=== PATIENT | female | born 1970 | race Caucasian/White ===

== ENCOUNTER 2022-09-08 22:17 | Observation (INO) | payer OTHER, MEDICAID, SELFPAY ==
[2022-09-08 22:38] VITALS: PULSE 66; O2SAT 99
[2022-09-08 22:44] VITALS: BP 143/91; PULSE 75; RESP 16; TEMP 36.6; O2SAT 98; BMI 19.9
[2022-09-08 22:59] LABS: Add Manual Diff / Slide Review NO; Basophils Absolute Auto 100 /uL (0-100); Basophils Percent Auto 0.9 % (0-2); Eosinophils Absolute Auto 100 /uL (0-450); Hematocrit 40.4 % (36-46); Lymphocytes Absolute Auto 1800 /uL (1100-4500); Lymphocytes Percent Auto 23.7 % (25-40); Mean Corpuscular HGB Conc 34.6 % (30-36); Mean Corpuscular Hemoglobin 32.7 PG (26-34); Mean Corpuscular Volume 94.6 fL (80-100); Monocytes Absolute Auto 500 /uL (0-900); Monocytes Percent Auto 7.2 % (3-14); Neutrophils Absolute Auto 5100 /uL (1500-7000); Neutrophils Percent Auto 67.2 % (50-75); Platelet Count 249 X10^3/uL (150-400); Red Blood Cell Count 4.27 X10^6/uL (4.0-5.2); Red Cell Distribution Width 13.1 % (11.6-14.8); White Blood Cell Count 7.6 X10^3/uL (4.5-11.0)
[2022-09-08 23:00] VITALS: PULSE 64; O2SAT 98
[2022-09-08 23:01] LABS: Alanine Aminotransferase 16 IU/L (<35); Albumin 4.7 g/dL (3.5-5.0); Albumin Globulin Ratio 1.7 (1.0-2.8); Alkaline Phosphatase 45 U/L (38-126); Aspartate Aminotransferase 19 IU/L (14-36); BUN Creatinine Ratio 10.8 (6-22); Bilirubin Total 0.6 mg/dL (0.2-1.3); Blood Urea Nitrogen 9 mg/dL (7-17); Calcium 9.4 mg/dL (8.4-10.2); Carbon Dioxide 26 mmol/L (22-32); Chloride 106 mmol/L (98-107); Estimated Glomerular Filt Rate > 60 mL/min (>60); Globulin 2.8 g/dL (1.7-4.1); Glucose 82 mg/dL (70-100); HEMOLYSIS < 15 (0-50); Lipase 154 U/L (23-300); Potassium 3.5 mmol/L (3.4-5.1); Sodium 141 mmol/L (137-145); Total Protein 7.5 g/dL (6.3-8.2)
--- NOTE | 2022-09-08 23:10 | ED_ITS ---
HPI - Abdominal Pain General Chief Complaint: Abdominal Pain Stated Complaint: abd pain/rt side Time Seen by Provider: 09/08/22 22:40 Source: patient Mode of arrival: Ambulatory History of Present Illness HPI narrative: 52-year-old female smoker with no significant medical history and no prescription medications presents with a chief complaint of gradually worsening epigastric and right upper quadrant pain with some elements of right lower quadrant pain worsening over the course of the day. She states it is worse when she eats or drinks as well as moves. She has had nausea but denies any vomiting. She states she tried to have a hamburger much earlier in the day it sent her pain through the roof. She denies radiation to her back. She is had no fever or chills. She does not drink any alcohol. She denies any change in bowel habits or medications Related Data Allergies Allergy/AdvReac Type Severity Reaction Status Date / Time No Known Drug Allergies Allergy Verified 09/09/22 01:07 Review of Systems Review of Systems Narrative: GENERAL: Denies chills, fatigue, malaise, fever, sweats. HEENT: Denies sinus pain, ear pain, sore throat, difficulty swallowing, diz ziness. RESPIRATORY: Denies dyspnea, cough, wheezing, hemoptysis, sputum. CARDIOVASCULAR: Denies chest pain, palpitations, orthopnea, edema, GASTROINTESTINAL: See HPI : Denies dysuria, frequency, incontinence, hematuria, urinary retention. MUSCULOSKELETAL: denies weakness, joint pain, or bony pain SKIN: Denies rash, skin lesions, or other NEUROLOGIC: Denies weakness, headache, numbness, change in speech, confusion, seizures, incoordination. PSYCHIATRIC: No concerning psychosocial issues. 12 point review of systems is negative except for those stated above Patient History Social History Smoking Status: Current every day smoker Smoking Status: Current every day smoker Substance Use Type: does not use Exam Narrative Exam Narrative: GENERAL: [52] year old patient appears stated age. Well-developed patient, in mild distress. HEAD: Atraumatic. Normocephalic. EYES: Pupils equal round and reactive. Extraocular motions intact. No scleral icterus. No injection or drainage. ENT: Nose without bleeding, purulent drainage. Throat without erythema, tonsillar hypertrophy or exudate. Airway patent. NECK: Trachea midline. Non tender CARDIOVASCULAR: Regular rate and rhythm without murmurs, gallops, or rubs. RESPIRATORY: Clear to auscultation. Breath sounds equal bilaterally. No wheezes, rales, or rhonchi. GASTROINTESTINAL: Abdomen soft, tender in the epigastrium and right upper quadrant, nondistended. EXTREMITIES: No edema or joint tenderness. BACK: Nontender without deformity or crepitance. No flank tenderness. NEURO: AOx3. SKIN: No rash or erythema of visible areas Initial Vital Signs Initial Vital Signs: Vital Signs Temperature 97.8 F 09/08/22 22:44 Pulse Rate 75 09/08/22 22:44 Respiratory Rate 16 09/08/22 22:44 Blood Pressure 143/91 H 09/08/22 22:44 Pulse Oximetry 98 09/08/22 22:44 Oxygen Delivery Method 09/08/22 22:44 Course Orders Ordered: ED Orders 09/08/22 22:40 Complete Blood Count AUTO DIFF Stat Comprehensive Metabolic Panel Stat Lipase Stat Test Urine Stat 09/08/22 22:44 EKG-12 Lead Stat 09/08/22 23:45 US abdomen limited Stat Discontinued Medications Sodium Chloride (Normal Saline 0.9%) 1,000 mls @ 1,000 mls/hr IV BOLUS ONE Stop: 09/09/22 00:44 Last Infusion: 09/09/22 01:41 Dose: 0 mls/hr Documented By: Admin: 09/08/22 23:54 Dose: 1,000 mls/hr Documented By: RODGER Ampicillin Sodium/Sulbactam (Sodium 3 gm/ Sodium Chloride) 100 mls @ 200 mls/hr IV NOW ONE Stop: 09/09/22 01:02 Pantoprazole Sodium (Pantoprazole 40 Mg Vial) 40 mg IV NOW ONE Stop: 09/08/22 23:46 Last Admin: 09/08/22 23:54 Dose: 40 mg Documented By: RODGER Consultations Consultation #1: call to Dr. Woodson upon receipt of US, request patient be admitted to her service, keep NPO start Unasyn and write bridging orders Time: 00:54 Vital Signs Vital signs: Vital Signs - 8 hr 09/08/22 22:44 Temperature 97.8 F Pulse Rate 75 Respiratory Rate 16 Blood Pressure 143/91 H Pulse Oximetry 98 Oxygen Delivery Method Room Air MDM - Abdominal Pain Lab Data Result diagrams: 09/08/22 22:40 09/08/22 22:40 Labs: Lab Results 09/08/22 09/08/22 09/08/22 Range/Units 22:40 22:40 22:40 WBC 7.6 (4.5-11.0) X10^3/uL RBC 4.27 (4.0-5.2) X10^6/uL Hgb 14.0 (12.0-16.0) g/dL Hct 40.4 (36-46) % MCV 94.6 (80-100) fL MCH 32.7 (26-34) PG MCHC 34.6 (30-36) % RDW 13.1 (11.6-14.8) % Plt Count 249 (150-400) X10^3/uL Neut % (Auto) 67.2 (50-75) % Lymph % (Auto) 23.7 L (25-40) % [place] % (Auto) 7.2 (3-14) % Eos % (Auto) 1.0 L (2-4) % Baso % (Auto) 0.9 (0-2) % Neut # (Auto) 5100 (2913-7805) /uL Lymph # (Auto) 1800 (0873-6800) /uL [place] # (Auto) 500 (0-900) /uL Eos # (Auto) 100 (0-450) /uL Baso # (Auto) 100 (0-100) /uL Sodium 141 (137-145) mmol/L Potassium 3.5 (3.4-5.1) mmol/L Chloride 106 (98-107) mmol/L Carbon Dioxide 26 (22-32) mmol/L BUN 9 (7-17) mg/dL Creatinine 0.83 (0.52-1.04) mg/dL Estimated GFR > 60 (>60) mL/min BUN/Creatinine Ratio 10.8 (6-22) Glucose 82 (70-100) mg/dL Calcium 9.4 (8.4-10.2) mg/dL Total Bilirubin 0.6 (0.2-1.3) mg/dL AST 19 (14-36) IU/L ALT 16 (<35) IU/L Alkaline Phosphatase 45 (38-126) U/L Total Protein 7.5 (6.3-8.2) g/dL Albumin 4.7 (3.5-5.0) g/dL Globulin 2.8 (1.7-4.1) g/dL Albumin/Globulin Ratio 1.7 (1.0-2.8) Lipase 154 (23-300) U/L Urine Test Negative (Negative) Point of care testing: Urine Dip Bedside Urine Glucose Negative Bedside Urine Bilirubin - Negative Bedside Urine Ketone - Negative Urine Specific [place] 1.010 Bedside Urine Occult Blood - Negative Bedside Urine pH 7.0 Bedside Urine Protein - Negative Bedside Urine Urobilinogen - Negative Bedside Urine Nitrite - Negative Bedside Urine Leukocytes - Negative Esterase Imaging Data US - abdomen: Radiologist's Impression: [address] [address] Ultrasound Report Signed Patient: Veronica Ferreira MR#: [id number] : 1970 Acct:[id number] Age/Sex: 52 / F Date of Service: 09/08/22 Loc: 90A-1 Accession Number: [id number] ?? Procedure: US abdomen limited Ordering Provider: Pranav Ovalle D.O. PROCEDURE: US ABDOMEN LIMITED ? INDICATIONS:? EPIGASTRIC AND RIGHT UPPER QUADRANT PAIN ? TECHNIQUE:? Real-time focused scanning was performed of the abdomen, with image documentation.? ? COMPARISON:? None. ? FINDINGS:? ? The liver appears within normal size limits.? No discrete hepatic mass identified. ? A large gallstone measuring up to 1.7 cm is demonstrated in the gallbladder.? The gallbladder is incompletely distended limiting evaluation.? Mild gallbladder wall thickening is demonstrated measuring up to 0.3 cm which may be due to incomplete distention.? No pericholecystic fluid.? Patient was reportedly tender on examination. ? No definite intrahepatic biliary ductal dilatation.? There is mild extrahepatic dilatation, with the visualized common bile duct measuring up to 0.8 cm. ? Visualized pancreas appears unremarkable sonographically. ? Prominent peristaltic activity noted within the stomach.? ? IMPRESSION:? ? 1. Cholelithiasis without definite evidence of cholecystitis.? Mild borderline gallbladder wall thickening may reflect artifact secondary to incomplete gallbladder distention. ? 2. Borderline biliary ductal dilatation.? Recommend correlation with laboratory values. ? 3. Peristaltic activity noted in the stomach.? Finding is nonspecific and may reflect a gastroenteritis.? ? Dictated by: Saul Rollins M.D. on 09/09/2022 at 1:22 ? ? Approved by: Saul Rollins M.D. on 09/09/2022 at 1:26 ? [facility] Narrative Medical decision making narrative: [52-year-old female smoker without chronic medical history presents with epigastric and right upper quadrant pain, worse with moving and eating] Multiple etiologies for patient's symptoms considered including, but not limited to: [Gallbladder disease, pancreatitis, bowel obstruction versus other] Labs reviewed and interpreted by myself: No significant abnormality such as elevated white blood cell count, elevated bilirubin or LFTs to suggest an obstructive process Imaging reviewed: Gallstones with thickened gallbladder wall, possible sludge Consultations: Discussed with on-call general surgeon (Dr. Woodson) Patient's history, physical exam and ultrasound consistent with gallbladder disease, imaging suggestive of early coli cystitis. No labs to suggest obstructive process Findings and admission diagnosis discussed with patient/family followed by verbalization of understanding Discharge Plan Departure Patient Disposition: Admitted as Observation Clinical Impression: Acute cholecystitis Admit Date/Time: 09/09/22 01:06 Admit Provider: Darline Woodson
[2022-09-08 23:20] VITALS: BP 129/97; PULSE 74; RESP 19; O2SAT 96
[2022-09-08 23:27] LABS: Pregnancy Test Urine Negative (Negative)
[2022-09-08 23:30] VITALS: BP 128/62; PULSE 70; RESP 19; O2SAT 96
--- NOTE | 2022-09-08 23:45 | DI.US.S_ITS ---
PROCEDURE: US ABDOMEN LIMITED INDICATIONS: EPIGASTRIC AND RIGHT UPPER QUADRANT PAIN TECHNIQUE: Real-time focused scanning was performed of the abdomen, with image documentation. COMPARISON: None. FINDINGS: The liver appears within normal size limits. No discrete hepatic mass identified. A large gallstone measuring up to 1.7 cm is demonstrated in the gallbladder. The gallbladder is incompletely distended limiting evaluation. Mild gallbladder wall thickening is demonstrated measuring up to 0.3 cm which may be due to incomplete distention. No pericholecystic fluid. Patient was reportedly tender on examination. No definite intrahepatic biliary ductal dilatation. There is mild extrahepatic dilatation, with the visualized common bile duct measuring up to 0.8 cm. Visualized pancreas appears unremarkable sonographically. Prominent peristaltic activity noted within the stomach. IMPRESSION: 1. Cholelithiasis without definite evidence of cholecystitis. Mild borderline gallbladder wall thickening may reflect artifact secondary to incomplete gallbladder distention. 2. Borderline biliary ductal dilatation. Recommend correlation with laboratory values. 3. Peristaltic activity noted in the stomach. Finding is nonspecific and may reflect a gastroenteritis. Dictated by: Saul Rollins M.D. on 09/09/2022 at 1:22 Approved by: Saul Rollins M.D. on 09/09/2022 at 1:26
[2022-09-08] MEDS: SODIUM CHLORIDE 0.9% 1,000 ML 1000 ML IV (23:54)
[2022-09-08] MEDS: PANTOPRAZOLE 40 MG VIAL IV (23:54)
[2022-09-09] VITALS (16 sets, daily range): BP systolic 113–181; BP diastolic 52–91; PULSE 45–75; RESP 12–20; TEMP 35.9–36.8; O2SAT 92–99; BMI 19.9
--- NOTE | 2022-09-09 | PATH_ITS ---
[facility] Accession Number: [id number] . 01 Material submitted: . gallbladder - GALLBLADDER . 01 Diagnosis: Gallbladder, Cholecystectomy: Chronic cholecystitis and cholelithiasis. Negative for neoplasia. MRV 09/11/2022 1637 Local . 01 Electronically signed: . Monique Otero MD, Pathologist NPI- [id number] . 01 Gross description: . The specimen is received in formalin labeled with the patient's name, , and gallbladder, and consists of an intact gallbladder measuring 7.5 x 3.3 x 2.4 cm. The serosa is dark green and smooth while the hepatic surface is rough and unremarkable. The cystic duct is received closed with a clamp, is inked blue, and no pericystic lymph node is identified. Opening the specimen reveals the lumen is filled with dark green viscous bile and a single brown roughened calculus measuring 2.5 cm in greatest dimension. The mucosa is dark green and velvety with no pinpoint yellow areas of discoloration, polyps, or lesions identified. The kinsey average 0.2 cm thick. Supervisor Waterproofing sections to include the cystic duct margin and full-thickness sections are submitted in cassette A1. ([id number]) /MRV 09/10/2022 1609 Local . 01 Pathologist provided ICD-10: K81.9 . 01 CPT . 854896 Specimen Comment: A courtesy copy of this report has been sent to [phone], [phone] Specimen Comment: [id number] Performed at: 01 [facility] [address] [place] [address] [address] [facility], [place], [place] [id number] MD Saul Gonzales MD Phone: [phone]
[2022-09-09 01:33] LABS: COVID19 -Nasal RAPID Negative (Negative)
[2022-09-09] MEDS: AMPICILLIN/SULBACTAM 3 GM 3 GM in SODIUM CHLORIDE 0.9% 100 ML IV (01:49)
[2022-09-09] MEDS: SODIUM CHLORIDE 0.9% 1,000 ML 125 ML IV (02:36)
--- NOTE | 2022-09-09 07:45 | PC.NURSE ---
Confirmed with Destiny in PACU that patient has surgery scheduled for approx 1245 today, and new orders put in by Dr. Clifford are for pre-op nurse. Maintain NPO. Continue to follow.
--- NOTE | 2022-09-09 10:32 | CM.DANOTE ---
DCP: Case received, EMR reviewed and met with patient. Introduced self and role. Was able to obtain some history from patient. DCP assessment completed with information currently available. Patient is a 52 year old female who admitted early this morning to the care of the hospitalist team. PCP: None currently, used to go to [facility]. Payer: confirmed: [employer]. Patient came to the hospital via private vehicle secondary to having worsening epigastric and upper right quadrant pain. Patient indicated that it was getting worse when she eats or drinks, and moves. Patient was diagnosed with acute cholecystitis. She is currently NPO, plan is to have surgery today at 1230. Met with patient in her room. She was laying in, alert and oriented. Confirmed that she resides here in [place] alone, but daughter and grandchildren are with her visiting for a while. She is self employed, independent at baseline. Asked her if she had a provider, and she indicated that she used to go to [facility], but now is looking for a provider. Let her know that [facility] can offer local resources for clinics at [facility]. P: DCP to continue to follow. Plan is surgery today, and home when deemed medically stable. Racheal Evans RN/Blood Bank Supervisor Discharge Planning/Care Management CM Discharge Assessment Start: 09/09/22 10:30 Freq: Status: Active Protocol: Document 09/09/22 10:30 (Rec: 09/09/22 10:32 [id number]) Discharge Planning Assessment Assigned [employer] Pasture Grower Racheal Evans RN/Blood Bank Supervisor Advance Directives? No History Provided By Patient,Medical Record Prior Living Arrangements Mobile home Household Members family Type of transporation used prior to Drives own vehicle admit Independent with ADL's Yes Is patient alert and oriented? Yes Caregiver for Another No Discharge Plan Home Transportation Arrangement Children Referrals Initiated None needed Whiteboard Updated in Patient Room with Yes name and ext. # of [employer] Pasture Grower Review Status In Process Next Review Type Continued Stay Review
--- NOTE | 2022-09-09 11:19 | P.HP_ITS ---
History of Present Illness History of Present Illness Date Patient Seen: 09/09/22 Time Patient Seen: 11:19 Chief complaint: abd pain/rt side Narrative: Has had nausea with eating for over a month now. RUQ sharp pain this last 24hrs, nothing makes it better. First episode of this severity. US confirms impacted stone in neck of gallbladder. Patient History Family & Social History Social History: household members family Prior Living Arrangements Mobile home Safety & Behavioral: Feels Safe in Current Yes Environment Been Physically Hurt or No Threatened By a Person Tobacco & Substance use: Tobacco type cigarettes Smoking Status Current every day smoker Smoking packs per day 0.5 alcohol intake frequency a few times a month Substance Use Type marijuana Meds Home Medications and Allergies Home Medications Medication Instructions Recorded Confirmed Type No Known Home Medications 09/09/22 09/09/22 History Allergies Allergy/AdvReac Type Severity Reaction Status Date / Time No Known Drug Allergies Allergy Verified 09/09/22 01:07 Review of Systems Review of Systems ROS: Yes All systems reviewed with the patient and are negative except as otherwise documented Exam Vital Signs (past 8 hours): - 09/09/22 08:00 09/09/22 09:00 Temperature 98.2 F Pulse Rate 49 L Respiratory Rate 18 Blood Pressure 123/52 L Pulse Oximetry 97 Oxygen Delivery Method Room Air Oxygen Flow Rate 0 Oxygen Delivery Method Room Air Oxygen Flow Rate 0 Const General: cooperative and healthy appearing Nutritional Appearance: average body habitus HENMT Head: normal to inspection, normocephalic and atraumatic Ears: hearing grossly normal bilaterally Eyes General: appearance normal, both eyes and all related structures Neck Neck: trachea midline Chest Chest: normal inspection of the chest Resp Effort & Inspection: normal respiratory effort and able to speak in complete sentences Cardio Rate: bradycardic Rhythm: regular rhythm GI Palpation: soft and tender (RUQ tender to palpation) Skin General: no rashes or lesions noted and elasticity normal Neuro General: patient alert, patient awake and patient oriented x3 Cognition: normal cognition Extrem General: normal to inspection Psych Appearance: grossly normal Mental Status: mental status grossly normal Affect: normal affect Judgment: judgment good Objective Labs Result Diagrams: 09/08/22 22:40 09/08/22 22:40 Labs: Laboratory Results - last 24 hr 09/08/22 09/08/22 09/08/22 22:40 22:40 22:40 WBC 7.6 RBC 4.27 Hgb 14.0 Hct 40.4 MCV 94.6 MCH 32.7 MCHC 34.6 RDW 13.1 Plt Count 249 Neut % (Auto) 67.2 Lymph % (Auto) 23.7 L [place] % (Auto) 7.2 Eos % (Auto) 1.0 L Baso % (Auto) 0.9 Neut # (Auto) 5100 Lymph # (Auto) 1800 [place] # (Auto) 500 Eos # (Auto) 100 Baso # (Auto) 100 Sodium 141 Potassium 3.5 Chloride 106 Carbon Dioxide 26 BUN 9 Creatinine 0.83 Estimated GFR > 60 BUN/Creatinine Ratio 10.8 Glucose 82 Calcium 9.4 Total Bilirubin 0.6 AST 19 ALT 16 Alkaline Phosphatase 45 Total Protein 7.5 Albumin 4.7 Globulin 2.8 Albumin/Globulin Ratio 1.7 Lipase 154 Urine Test Negative SARS-CoV-2 (PCR) 09/09/22 01:08 WBC RBC Hgb Hct MCV MCH MCHC RDW Plt Count Neut % (Auto) Lymph % (Auto) [place] % (Auto) Eos % (Auto) Baso % (Auto) Neut # (Auto) Lymph # (Auto) [place] # (Auto) Eos # (Auto) Baso # (Auto) Sodium Potassium Chloride Carbon Dioxide BUN Creatinine Estimated GFR BUN/Creatinine Ratio Glucose Calcium Total Bilirubin AST ALT Alkaline Phosphatase Total Protein Albumin Globulin Albumin/Globulin Ratio Lipase Urine Test SARS-CoV-2 (PCR) Negative Assessment & Plan Assessment & Plan narrative: Acute cholecystitis Laparoscopic cholecystectomy prior to discharge, possible discharge later today. COVID-19 COVID-19 status: Negative Time Spent With Patient Critical Care time: I spent a total of [] minutes of critical care time on this patient's care today; this time is exclusive of procedural time. Quality VTE Deep Vein Thrombosis/Pulmonary Embolism Present on Admission: No
--- NOTE | 2022-09-09 12:22 | PC.NURSE ---
Patient picked up for surgery.
[2022-09-09] MEDS: GABAPENTIN 300 MG CAPSULE PO (12:48)
[2022-09-09] MEDS: LACTATED RINGERS 1,000 ML 100 ML IV ×2 (12:48→16:06)
[2022-09-09] MEDS: CELECOXIB 200 MG CAPSULE PO (12:48)
[2022-09-09] MEDS: SCOPOLAMINE 1 PATCH TOP (12:50)
[2022-09-09] MEDS: CEFAZOLIN 2 GM/100 ML PREMIX 100 ML IV (14:35)
[2022-09-09] MEDS: BUPIVACAINE 0.5% W/ EPI (PF) 30 ML VIAL INJ (14:48)
--- NOTE | 2022-09-09 14:49 | SUR.OPER ---
Supine on padded OR bed, head on pillow, arms secured on padded arm boards at <90 degrees abduction, legs uncrossed, safety belt at thigh, tape over blanket over lower legs.
--- NOTE | 2022-09-09 15:15 | P.OP_ITS ---
Operative Date/Time/Diagnoses Date of procedure: 09/09/22 Time of procedure: 15:15 Pre-op diagnosis: Acute cholecystitis Post-op diagnosis: same Procedure & Clinicians Procedure: Laparoscopic cholecystectomy Same procedure as scheduled: Yes Indications: Acute cholecystitis Surgeon: Monique Clifford Click Yes if Unassisted: Yes Anesthesia Type: General Operative Notes Findings: Acute cholecystitis Closure Type: primary Specimen(s): other (Gallbladder) Estimated Blood Loss (mL): 15 Blood products transfused: none Procedure in detail: Preop diagnosis: Acute cholecystitis Postop diagnosis: Same Operative procedure: Laparoscopic cholecystectomy Findings: Acute cholecystitis Surgeon: Maria Guadalupe Clifford MD Anesthetic: General with ET tube intubation along with local Procedure: Patient placed in a supine position. Prepped and draped in sterile fashion to expose her abdomen. Infraumbilical port site placed using open technique a 12 mm port. Insufflation began all other ports were placed under direct vision including a 5 mm port in the midepigastrium and 2 5 mm ports in the right lateral abdomen. Gallbladder was grasped with cephalad for exposure. Cystic duct was identified. Clipped once distally twice proximally and transe cted. Cystic artery was identified clipped once distally once proximally and transected. Gallbladder is removed from the fossa with electrocautery. Hemostasis was achieved with electrocautery. We had no spillage of bile or stones. Gallbladder is placed into an Endo-Catch bag and pulled through the infraumbilical port site intact. I surveyed the abdomen for hemostasis and then removed all ports to begin closure. Closure consisted of interrupted 0 Vicryl for fascial closure. One 5 mm port site at the most lateral was closed with an external for 0 Monocryl. The 12 mm port site skin closure was interrupted 4-0 Monocryl. And the other remaining 2 5 mm port sites were closed with Steri- Strips alone. Sterile dressings were placed. Patient was awakened, extubated, taken to recovery room in stable condition. Needle, instrument, sponge counts were correct. Blood loss: 15 mL Specimen: Gallbladder Complications: none Post-operative Condition: stable Disposition: PACU
[2022-09-09] MEDS: ONDANSETRON 4 MG/2 ML INJ IV (16:00)
--- NOTE | 2022-09-09 16:51 | PC.NURSE ---
Patient received from PACU back to room 218. Denies pain. 4 lap sites with gauze and tegaderm in place to abdomen, with minimal drainage noted. Monitor for po intake, post op void, and pain management. Order for discharge this evening if tolerating eating. VSS. Call light within reach.
== END 2022-09-09 19:05 | disposition home or self-care (01) ==
LOC: ED 09-09 01:03 → AC 09-09 01:07
PROVIDERS: Surgery; Admitting Provider Surgery; Emergency Provider Emergency Medicine; Referring Provider Emergency Medicine; Visit Provider Surgery
PROC: 0FT44ZZ Resection of Gallbladder, Percutaneous Endoscopic Approach (ICD-10-PCS; CPT 47562; principal; 2022-09-09 12:30)
DX: K80.00 Calculus of gallbladder with acute cholecystitis without obstruction (principal); Z20.822 Contact with and (suspected) exposure to COVID-19
CPT/HCPCS: 47562; 36415; 76705; 80053; 81003; 81025; 82962; 83690; 85025; 87635; 96361; 96365; 96375; 99221; 99284; C9803; G0378; C9113; J0295; J0330; J0690; J1100; J1170; J2405; J2704; J3010